=== PATIENT | male | born 1990 | race Caucasian/White ===

== ENCOUNTER 2020-05-26 07:44 | Emergency (ER) | payer OTHER ==
[2020-05-26] MEDS ORDERED: Sodium Chloride 0.9% 10 ML Syringe FLUSH PRN ×2 (07:51→08:29)
[2020-05-26] MEDS ORDERED: HYDROmorphone 0.5 MG/0.5 ML Syringe IVPUSH ONE (07:52)
[2020-05-26] MEDS ORDERED: Lactated Ringers 1,000 ML IV SCH (08:00)
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
[2020-05-26] MEDS ORDERED: Iopamidol 612 MG/ML 100 ML Bottle IVPUSH ONE (08:29)
[2020-05-26] MEDS ORDERED: Lidocaine 1% with EPINEPHrine 1:100,000 20 ML MDV ONE (08:58)
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
== END 2020-05-26 09:30 ==
LOC: JD.ED 07:44
DX: S27.0XXA Traumatic pneumothorax, initial encounter (principal); S36.039A Unspecified laceration of spleen, initial encounter; S06.309A Unspecified focal traumatic brain injury with loss of consciousness of unspecified duration, initial encounter; S32.018A Other fracture of first lumbar vertebra, initial encounter for closed fracture; S22.42XA Multiple fractures of ribs, left side, initial encounter for closed fracture; S22.038A Other fracture of third thoracic vertebra, initial encounter for closed fracture; Z20.828 Contact with and (suspected) exposure to other viral communicable diseases; V48.5XXA Car driver injured in noncollision transport accident in traffic accident, initial encounter
CPT/HCPCS: 12002; 36415; 70450; 71260; 72125; 72128; 72131; 74177; 80053; 80307; 83690; 85025; 87635; 96374; 99285; J1170; J7120; Q9967; U0002